=== PATIENT | male | born 1985 | race Hispanic/Latino ===

== ENCOUNTER 2018-07-28 22:20 | Emergency (ER) | payer BC ==
[~2018-07-28] VITALS: Ht 182.9 cm; Wt 138.3 kg
--- OUTSIDE RECORDS SUMMARY | 2018-07-28 22:23 | XMS REPORT | Clinical Summary ---
Author Author [facility] C [facility] Organization [facility] Address Unknown Phone Unavailable Care Team Providers Care Parole Hearing Officer Name Role Phone Asked, No Pcp PCP Unavailable Allergies No Known Allergies Medications End Date Status Medication Sig Dispensed Refills Start Date 04/22/2018 traMADol (ULTRAM) 50 mg Take 1 tablet 30 tablet 0 tablet (50 mg total) 8 by mouth every 6 (six) hours as needed for moderate pain or severe pain for up to 7 days. 04/18/2018 ciprofloxacin (CIPRO) 500 Take 1 tablet 6 tablet 0 MG tablet (500 mg 8 total) by mouth 2 (two) times a day for 3 days. 04/18/2018 metroNIDAZOLE (FLAGYL) Take 1 tablet 9 tablet 0 500 MG tablet (500 mg 8 total) by mouth 3 (three) times a day for 3 days. 05/15/2018 ibuprofen (ADVIL,MOTRIN) Take 1 tablet 30 tablet 0 800 MG tablet (800 mg 8 total) by mouth every 8 (eight) hours as needed for mild pain or moderate pain for up to 30 days. 05/15/2018 docusate sodium (COLACE) Take 1 30 capsule 0 100 MG capsule capsule (100 8 mg total) by mouth 2 (two) times a day as needed for constipation for up to 30 days. Active Problems Problem Noted Date Cholecystitis 04/14/2018 Cholelithiasis 04/14/2018 Encounters Care Team Description Date Type Specialty Andi López MD 04/14/2018 Anesthesia General Surgery Event Jessika Tinoco MD CHOLECYSTECTOMY, LAPAROSCOPIC 04/14/2018 Surgery General Surgery Ranjit Rome MD [place], Ekong Ebenezzar, MD Cholecystitis (Primary Dx) 04/14/2018 Emergency General Surgery - 04/15/2018 after 07/27/2017 Social History Date Tobacco Use Types Packs/Day Years Used Current Every Day Smoker Cigarettes 0.5 20 Smokeless Tobacco: Snuff Current User Alcohol Use Drinks/Week oz/Week Comments Yes socially Sex Assigned at Date Recorded Not on file Industry Job Start Date Occupation Not on file Not on file Not on file Travel End Travel History Travel Start No recent travel history available. Last Filed Vital Signs Time Taken Vital Sign Reading 04/15/2018 7:05 AM CDT Blood Pressure 111/55 04/15/2018 7:05 AM CDT Pulse 58 04/15/2018 7:05 AM CDT Temperature 36.8 C (98.3 F) 04/15/2018 7:05 AM CDT Respiratory Rate 18 04/15/2018 7:21 AM CDT Oxygen Saturation 98% - Inhaled Oxygen - Concentration 04/15/2018 12:28 AM CDT Weight 139 kg (305 lb 6.4 oz) 04/14/2018 4:21 AM CDT Height 182.9 cm (6') 04/15/2018 12:28 AM CDT Body Mass Index 41.42 Plan of Treatment Health Maintenance Due Date Last Done Comments INFLUENZA VACCINE 02/04/2018 Procedures Comments Procedure Name Priority Date/Time Associated Diagnosis HC COMPLETE BLD COUNT Routine 04/15/2018 W/AUTO DIFF 5:48 AM CDT ESTIMATED GFR Routine 04/15/2018 5:48 AM CDT COMPREHENSIVE METABOLIC Routine 04/15/2018 PANEL 5:48 AM CDT SURGICAL PATHOLOGY Routine 04/14/2018 REQUEST 7:03 PM CDT SD AN ELECTIVE Routine 04/14/2018 ENDOTRACHEAL AIRWAY 6:52 PM CDT Procedure Note - Ivon Carolina, ANIMAL NUTRITIONIST - 04/14/2018 6:52 PM CDT Airway Performed by: IVON CAROLINA Authorized by: ANDI LÓPEZ Location: OR Urgency: Elective Difficult Airway: No Anesthesio logist: ANDI LÓPEZ Resident/C RNA/AA: IVON CAROLINA Performed by: resident/C RNA/AA Preoxygena andres with 100% O2: Yes Mask Ventilatio n: Easy mask Final Airway Type: Endotrache al airway Final Endotrache al Airway: ETT Cuffed: Yes Technique Used: Direct laryngosco py Devices/Me thods Used in Placement: Intubatin g stylet Insertion Site: Oral Blade Type: Douglas Laryngosco pe Blade/Vide olaryngosc ope Blade Size: 2 ETT Size (mm): 7.5 Cuff at minimum occlusion pressure: Yes Measured from: Lips ETT to Lips (cm): 23 Placement Verified by: CO2 detection, direct visualizat ion and equal breath sounds Laryngosco pic view: Grade IIa - partial view of glottis Rapid Sequence Induction (RSI): No Modified RSI: No Number of Attempts at Approach: 1 Atraumati c CHOLECYSTECTOMY, 04/14/2018 Acute cholecystitis LAPAROSCOPIC 6:00 PM CDT US GALLBLADDER STAT 04/14/2018 5:12 AM CDT ESTIMATED GFR STAT 04/14/2018 4:57 AM CDT LIPASE LEVEL STAT 04/14/2018 4:57 AM CDT HEPATIC FUNCTION PANEL STAT 04/14/2018 4:57 AM CDT BASIC METABOLIC PANEL STAT 04/14/2018 4:57 AM CDT HC COMPLETE BLD COUNT STAT 04/14/2018 W/AUTO DIFF 4:57 AM CDT ECG 12-LEAD Routine 04/14/2018 4:08 AM CDT after 07/27/2017 Results * Estimated GFR (04/15/2018 5:48 AM CDT) Only the most recent of 2 results within the time period is included. Estimated GFR >=90 mL/min/1.73 m2 [facility] DEPARTMENT OF Comment: PATHOLOGY AND [employer] GENOMIC MEDICINE rpretation G1 >=90 Normal or high G2 60-89Mildly decreased [id number] Mildly to moderately decreased [id number] Moderately to severely decreased G4 15-29Severely decreased G5 <15Kidney failure The eGFR was calculated using the Chronic Kidney Disease Epidemiology Collaboration (CKD-EPI) equation. Interpretation is based on recommendations of the National Kidney Foundation-Kidney Disease Outcomes Quality Initiative (NKF-KDOQI) published in 2014. Specimen Plasma specimen Performing Organization Address City/[facility]/Zipcode Phone Number [facility] [id number] [place] [address] [place] [address] PATHOLOGY [facility] GENOMIC MEDICINE * CBC with platelet and differential (04/15/2018 5:48 AM CDT) Only the most recent of 2 results within the time period is included. WBC 14.89 (H) 4.50 - 11.00 k/uL [facility] DEPARTMENT OF PATHOLOGY AND GENOMIC MEDICINE RBC 4.59 4.40 - 6.00 m/uL [facility] OF PATHOLOGY AND GENOMIC MEDICINE HGB 13.6 (L) 14.0 - 18.0 g/dL [facility] DEPARTMENT OF PATHOLOGY AND GENOMIC MEDICINE HCT 40.8 (L) 41.0 - 51.0 % [facility] DEPARTMENT OF PATHOLOGY AND GENOMIC MEDICINE MCV 88.9 82.0 - 100.0 fL [facility] DEPARTMENT OF PATHOLOGY AND GENOMIC MEDICINE MCH 29.6 27.0 - 34.0 pg [facility] DEPARTMENT OF PATHOLOGY AND GENOMIC MEDICINE MCHC 33.3 31.0 - 37.0 g/dL [facility] DEPARTMENT OF PATHOLOGY AND GENOMIC MEDICINE RDW - SD 41.7 37.0 - 55.0 fL [facility] DEPARTMENT OF PATHOLOGY AND GENOMIC MEDICINE MPV 9.8 8.8 - 13.2 fL [facility] DEPARTMENT OF PATHOLOGY AND GENOMIC MEDICINE Platelet count 241 150 - 400 k/uL [facility] DEPARTMENT OF PATHOLOGY AND GENOMIC MEDICINE Nucleated RBC 0.00 /100 WBC [facility] DEPARTMENT OF PATHOLOGY AND GENOMIC MEDICINE Neutrophils 84.8 (H) 39.0 - 69.0 % [facility] DEPARTMENT OF PATHOLOGY AND GENOMIC MEDICINE Lymphocytes 10.9 (L) 25.0 - 45.0 % [facility] DEPARTMENT OF PATHOLOGY AND GENOMIC MEDICINE Monocytes 3.8 0.0 - 10.0 % [facility] DEPARTMENT OF PATHOLOGY AND GENOMIC MEDICINE Eosinophils 0.0 0.0 - 5.0 % [facility] DEPARTMENT OF PATHOLOGY AND GENOMIC MEDICINE Basophils 0.1 0.0 - 1.0 % [facility] DEPARTMENT OF PATHOLOGY AND GENOMIC MEDICINE Performing Organization Address City/[facility]/Zipcode Phone Number [facility] [place] [address] [place] [address] PATHOLOGY [facility] [employer] MEDICINE * Comprehensive metabolic panel (04/15/2018 5:48 AM CDT) Sodium 139 135 - 148 mEq/L [facility] DEPARTMENT OF PATHOLOGY AND GENOMIC MEDICINE Potassium 4.3 3.5 - 5.0 mEq/L [facility] DEPARTMENT OF PATHOLOGY AND GENOMIC MEDICINE Chloride 103 98 - 112 mEq/L [facility] DEPARTMENT OF PATHOLOGY AND GENOMIC MEDICINE CO2 25 24 - 31 mEq/L [facility] DEPARTMENT OF PATHOLOGY AND GENOMIC MEDICINE Anion gap 11@ANIO 7 - 15 mEq/L [facility] DEPARTMENT OF PATHOLOGY AND GENOMIC MEDICINE BUN 9 6 - 20 mg/dL [facility] DEPARTMENT OF PATHOLOGY AND GENOMIC MEDICINE Creatinine 0.80 0.70 - 1.20 mg/dL [facility] DEPARTMENT OF PATHOLOGY AND GENOMIC MEDICINE Glucose 132 (H) 65 - 99 mg/dL [facility] DEPARTMENT OF PATHOLOGY AND GENOMIC MEDICINE Calcium 9.5 8.3 - 10.2 mg/dL [facility] DEPARTMENT OF PATHOLOGY AND GENOMIC MEDICINE Protein 7.3 6.3 - 8.3 g/dL [facility] DEPARTMENT OF Comment: PATHOLOGY AND [place] GENOMIC MEDICINE 4.6-7.0 g/dL 1 week 4.4-7.6 g/dL 7 months-1year 5.1-7.3 g/dL 1-2 years5.6-7 .5 g/dL >3 years6.0-8 .0 g/dL 18-150 6.3-8.3 g/dL Albumin 3.9 3.5 - 5.0 g/dL [facility] DEPARTMENT OF PATHOLOGY AND GENOMIC MEDICINE A/G ratio 1.1 0.7 - 3.8 [facility] DEPARTMENT OF PATHOLOGY AND GENOMIC MEDICINE Alkaline phosphatase 113 40 - 129 U/L [facility] DEPARTMENT OF PATHOLOGY AND GENOMIC MEDICINE AST 32 10 - 50 U/L [facility] DEPARTMENT OF PATHOLOGY AND GENOMIC MEDICINE ALT 37 5 - 50 U/L [facility] DEPARTMENT OF PATHOLOGY AND GENOMIC MEDICINE Total bilirubin 0.4 0.0 - 1.2 mg/dL [facility] DEPARTMENT OF PATHOLOGY AND GENOMIC MEDICINE Specimen Plasma specimen Performing Organization Address City/State/Zipcode Phone Number [facility] [address] [place] [address] PATHOLOGY AND GENOMIC MEDICINE * Surgical pathology request (04/14/2018 7:03 PM CDT) [facility] DEPARTMENT OF PATHOLOGY AND GENOMIC MEDICINE Surgical pathology report See link below for PDF Lab [facility] DEPARTMENT OF Report PATHOLOGY AND GENOMIC MEDICINE Result status This is Final Report for [facility] DEPARTMENT OF [id number] PATHOLOGY AND GENOMIC MEDICINE Performing Organization Address [facility] Phone Number [address] [place] [address] PATHOLOGY AND GENOMIC MEDICINE * US Gallbladder (04/14/2018 5:12 AM CDT) Narrative Performed At Examination:[facility]DER [facility] Clinical History: abd pain Comparison: None. Findings: Gallbladder ultrasound was performed. Gallstones are noted in the gallbladder. There is gallbladder wall thickening measuring 0.4 cm. The portal vein is patent. The common bile measures 0.5 cm. IMPRESSION: 1. Cholelithiasis with gallbladder wall thickening. Cholecystitis cannot be excluded. [facility]-[id number] Procedure Note Interface, Radiology Results Incoming - 04/14/2018 5:19 AM CDT Examination: US GALLBLADDER Clinical History: abd pain Comparison: None. Findings: Gallbladder ultrasound was performed. Gallstones are noted in the gallbladder. There is gallbladder wall thickening measuring 0.4 cm. The portal vein is patent. The common bile measures 0.5 cm. IMPRESSION: 1. Cholelithiasis with gallbladder wall thickening. Cholecystitis cannot be excluded. [facility]-[id number] Performing Organization Address [facility]/Zipcode Phone Number [facility] [address] [place] [address] * Lipase level (04/14/2018 4:57 AM CDT) Lipase 20 13 - 60 U/L [facility] DEPARTMENT OF PATHOLOGY AND GENOMIC MEDICINE Specimen Plasma specimen Performing Organization Address City/[facility]/Zipcode Phone Number [facility] DEPARTMENT OF [facility] [place] [address] PATHOLOGY AND GENOMIC MEDICINE * Hepatic function panel (04/14/2018 4:57 AM CDT) Albumin 4.4 3.5 - 5.0 g/dL [facility] DEPARTMENT OF PATHOLOGY AND GENOMIC MEDICINE Total bilirubin 0.2 0.0 - 1.2 mg/dL [facility] DEPARTMENT OF PATHOLOGY AND GENOMIC MEDICINE Bilirubin direct <0.1 0.0 - 0.3 mg/dL [facility] DEPARTMENT OF PATHOLOGY AND GENOMIC MEDICINE Alkaline phosphatase 128 40 - 129 U/L [facility] DEPARTMENT OF PATHOLOGY AND GENOMIC MEDICINE Protein 8.3 6.3 - 8.3 g/dL [facility] DEPARTMENT OF Comment: PATHOLOGY AND [place] GENOMIC MEDICINE 4.6-7.0 g/dL 1 week 4.4-7.6 g/dL 7 months-1year 5.1-7.3 g/dL 1-2 years5.6-7 .5 g/dL >3 years6.0-8 .0 g/dL 18-150 6.3-8.3 g/dL ALT 28 5 - 50 U/L [facility] DEPARTMENT OF PATHOLOGY AND GENOMIC MEDICINE AST 19 10 - 50 U/L [facility] DEPARTMENT OF PATHOLOGY AND GENOMIC MEDICINE Specimen Plasma specimen Performing Organization Address [facility] Phone Number [address] [place] [phone] PATHOLOGY [facility] * Basic metabolic panel (04/14/2018 4:57 AM CDT) Sodium 142 135 - 148 mEq/L [facility] DEPARTMENT OF PATHOLOGY AND GENOMIC MEDICINE Potassium 4.2 3.5 - 5.0 mEq/L [facility] DEPARTMENT OF PATHOLOGY AND GENOMIC MEDICINE Chloride 103 98 - 112 mEq/L [facility] DEPARTMENT OF PATHOLOGY AND GENOMIC MEDICINE CO2 26 24 - 31 mEq/L [facility] DEPARTMENT OF PATHOLOGY AND GENOMIC MEDICINE Anion gap 13@ANIO 7 - 15 mEq/L [facility] DEPARTMENT OF PATHOLOGY AND GENOMIC MEDICINE BUN 10 6 - 20 mg/dL [facility] DEPARTMENT OF PATHOLOGY AND GENOMIC MEDICINE Creatinine 0.80 0.70 - 1.20 mg/dL [facility] DEPARTMENT OF PATHOLOGY AND GENOMIC MEDICINE Glucose 130 (H) 65 - 99 mg/dL [facility] DEPARTMENT OF PATHOLOGY AND GENOMIC MEDICINE Calcium 9.3 8.3 - 10.2 mg/dL [facility] DEPARTMENT OF PATHOLOGY AND GENOMIC MEDICINE Specimen Plasma specimen Performing Organization Address [facility] [place] Phone Number [address] [place] [address] PATHOLOGY [facility] * ECG 12 lead (04/14/2018 4:08 AM CDT) Ventricular rate 53 [facility] Atrial rate 53 [facility] SD interval 150 [facility] QRSD interval 58 [facility] QT interval 412 [facility] QTC interval 386 [facility] P axis 1 36 [facility] QRS axis 1 20 [facility] T wave axis 28 [facility] EKG impression Sinus bradycardia-Septal [facility] MUSE infarct , age undetermined-Abnormal ECG-No previous ECGs available- Performing Organization Address City/State/Zipcode Phone Number [facility] [address] [place] [address] after 07/27/2017 Insurance Payer Benefit Subscriber ID Type Phone Address Plan / Group BCBS BCBS OUT xxxxxxxxxxxxxxx PPO OF STATE Advance Directives Patient has advance care planning documents on file. For more information, gómez claire contact: Jose C Malcolm [address] [place] [address]
[2018-07-28 22:57] LABS: BASOPHILS # (AUTO) 0.1 (0.0-0.1); BASOPHILS % 0.6 % (0.0-1.0); EOSINOPHILS # (AUTO) 0.2 (0.0-0.4); EOSINOPHILS % 1.5 % (0.0-6.0); HEMATOCRIT 45.8 % (38.2-49.6); HEMOGLOBIN 15.4 g/dL (14.0-18.0); LYMPHOCYTES # (AUTO) 2.6 (1.0-3.2); MEAN CORPUSCULAR HEMOGLOBIN 29.5 pg (28-32); MEAN CORPUSCULAR HGB CONC 33.6 g/dL (31-35); MEAN CORPUSCULAR VOLUME 87.7 fL (81-99); MONOCYTES # (AUTO) 0.8 (0.2-0.8); MONOCYTES % 6.2 % (4.4-11.3); NEUTROPHILS # (AUTO) 8.6 (2.1-6.9); NEUTROPHILS % 70.4 % (38.7-80.0); PLATELET COUNT 269 x10e3/uL (140-360); RED BLOOD COUNT 5.22 x10e6/uL (4.3-5.7); RED CELL DISTRIBUTION WIDTH 12.7 % (11.7-14.4)
[2018-07-28 23:16] LABS: ALANINE AMINOTRANSFERASE 37 IU/L (0-55); ALBUMIN 3.9 g/dL (3.5-5.0); ALBUMIN/GLOBULIN RATIO 0.9 (0.8-2.0); ALKALINE PHOSPHATASE 138 IU/L (40-150); ANION GAP 12.9 mmol/L (8-16); BLOOD UREA NITROGEN 14 mg/dL (7-26); BUN/CREATININE RATIO 16 (6-25); CALCIUM 9.5 mg/dL (8.4-10.2); CARBON DIOXIDE 27 mmol/L (22-29); CHLORIDE 101 mmol/L (98-107); EST GLOMERULAR FILTRATION RATE > 60 ML/MIN (60-); GLUCOSE 105 mg/dL (74-118); POTASSIUM 3.9 mmol/L (3.5-5.1); SODIUM 137 mmol/L (136-145)
--- NOTE | 2018-07-29 00:50 | Diagnostic Imaging Report ---
EXAM: Scrotal Ultrasound with Duplex INDICATION: SWELLING PAIN LEFT TESTICAL, EVAL FOR TORISION, EPIDIMYTIS, COMPARISON: None TECHNIQUE: Transverse and longitudinal images were obtained of the scrotum with grayscale imaging, color Doppler and spectral waveform analysis. FINDINGS: Right testis: Size: 4.6 x 2.7 x 2.7 cm, normal in size. Echogenicity: Normal Mass/Cysts: None Left testis: Size: 4.2 x 3.1 x 3.1 cm, normal in size. Echogenicity: Normal Mass/Cysts: None Epididymis: Appearance: Left heterogeneous, hypervascular, and enlarged (2 x 1.7 x 1.2 cm) compared to the right (0.6 x 0.8 x 1.2 cm). Mass/Cysts: None Extratesticular: Masses: None Hydrocele: Moderate sized complex left hydrocele. Varicocele: None Doppler: Normal arterial flow to both testes and symmetrical flow on color Doppler evaluation is seen. No evidence of testicular torsion. IMPRESSION: 1. No evidence of testicular torsion. 2. Left epididymitis with complex left hydrocele. Signed by: DR. Shashank Malin MD on 07/29/2018 12:47 AM
[2018-07-29 00:59] LABS: CLARITY,URINE CLEAR (CLEAR); COLOR,URINE YELLOW (YELLOW); LEUKOCYTE ESTERASE ,URINE NEGATIVE (NEGATIVE); NITRITE,URINE NEGATIVE (NEGATIVE)
[2018-07-29 01:00] LABS: BILIRUBIN,URINE NEGATIVE (NEGATIVE); KETONES,URINE NEGATIVE (NEGATIVE); PROTEIN,URINE DIPSTICK NEGATIVE (NEGATIVE); URINE UROBILINOGEN 0.2 mg/dL (0.2 - 1)
[2018-07-29 01:08] LABS: BACTERIA,URINE RARE /HPF; WBC,URINE (MAN) 0-5 /HPF (0-5)
[2018-07-29] MEDS: KETOROLAC TROMETHAMINE 30 MG/ML VIAL IV STA ×2 (01:22→01:48)
[2018-07-29] MEDS ORDERED: KETOROLAC TROMETHAMINE 30 MG/ML VIAL ONE (07:04)
== END 2018-07-29 02:32 | disposition home or self-care (01) ==
LOC: ER 22:20
DX: N50.812 Left testicular pain (principal); N45.1 Epididymitis; N43.3 Hydrocele, unspecified
CPT/HCPCS: 36415; 76870; 80053; 81001; 85025; 87086; 93976; 96374; 99284; J1885

== ENCOUNTER 2021-12-16 12:15 | Emergency (ER) | payer SELFPAY ==
[~2021-12-16] VITALS: Ht 182.9 cm; Wt 144.4 kg
[2021-12-16] MEDS ORDERED: OMEPRAZOLE40 MG PO (13:11)
[2021-12-16] MEDS ORDERED: CEFTRIAXONE 1 GM VIAL IM ONE (15:30)
[2021-12-16] MEDS ORDERED: AUGMENTIN 500-1 EACH PO (15:34)
[2021-12-16] MEDS ORDERED: BACTRIM DS TAB1 EACH PO (15:34)
[2021-12-16] MEDS ORDERED: CEFTRIAXONE 1 GM VIAL ONE (15:54)
== END 2021-12-16 15:58 | disposition home or self-care (01) ==
LOC: FSED 12:56
DX: L03.116 Cellulitis of left lower limb (principal); L03.115 Cellulitis of right lower limb; R60.9 Edema, unspecified; K21.9 Gastro-esophageal reflux disease without esophagitis; G47.30 Sleep apnea, unspecified; F17.210 Nicotine dependence, cigarettes, uncomplicated
CPT/HCPCS: 80053; 83880; 85025; 87040; 93970; 99284; J0696